=== PATIENT | male | born 1995 | race Two or more races ===

== ENCOUNTER 2018-09-18 22:10 | Emergency (ER) | payer OTHER ==
[~2018-09-18] VITALS: Ht 180.3 cm; Wt 83.9 kg
[2018-09-18 22:10] VITALS: BP 124/69
[2018-09-19] MEDS ORDERED: LIDOCAINE 1% INJ 50 ML MDV IJ ONE (00:23)
== END 2018-09-19 02:07 | disposition home or self-care (01) ==
LOC: ER 22:14
DX: S61.012A Laceration without foreign body of left thumb without damage to nail, initial encounter (principal); W26.0XXA Contact with knife, initial encounter; Y93.89 Activity, other specified; Y92.511 Restaurant or cafe as the place of occurrence of the external cause; Y99.0 Civilian activity done for income or pay
CPT/HCPCS: 12002; 99283; A6403 ×2; J3490